=== PATIENT | male | born 1985 | race Caucasian/White ===

== ENCOUNTER → 2020-11-24 08:33 | Outpatient (CLI) | payer OTHER, SELFPAY ==
--- NOTE | ~2020-11-24 | MR_ITS ---
EXAMINATION: MR cervical spine wo con EXAM DATE: 11/24/2020 09:12 INDICATION: Right arm pain. Right-sided neck pain. TECHNIQUE: Multi-sequential, multiplanar MR images of the cervical spine were obtained without contra st. Axial T2, axial T2 MERGE sequence. Sagittal T1, T2, T2 fat saturation images also obtained. Th ere is no prior study for comparison. FINDINGS: There is moderate disc disease at C6-7, mild at the 4-5 and 5-6 levels. The spinal cord si gnal intensity and intrinsic morphology is normal. Cervicomedullary junction is normal in appearance. The vertebral bodies are aligned in the AP dimension. There are no suspicious marrow signal abnormal ities. Paraspinal soft tissue is unremarkable. Level by level evaluation: C2-C3: Disc does not extend beyond the endplate margin. Uncovertebral joint arthropathy: None. Facet joint arthropathy: Mild right. Neural foraminal stenosis: No stenosis. Central canal stenosis: No stenosis. C3-C4: Disc does not extend beyond the endplate margin. Uncovertebral joint arthropathy: Mild to moderate bilateral. Facet joint arthropathy: Mild bilateral. Neural foraminal stenosis: Mild to moderate bilateral. Central canal stenosis: No stenosis. C4-C5: There is a mild diffuse disc bulge. Uncovertebral joint arthropathy: Mild to moderate left, mild right. Facet joint arthropathy: Mild bilateral. Neural foraminal stenosis: No stenosis. Central canal stenosis: No stenosis. C5-C6: There is a mild diffuse disc bulge. Uncovertebral joint arthropathy: Mild to moderate bilateral. Facet joint arthropathy: None. Neural foraminal stenosis: No stenosis. Central canal stenosis: No stenosis. C6-7: Disc aspect by complex asymmetric to the right Uncovertebral joint arthropathy: Moderate right, mild left. Facet joint arthropathy: None. Neural foraminal stenosis: Moderate right. Central canal stenosis: No stenosis. C7-T1: There is far right protrusion causing severe right neural foraminal stenosis. Uncovertebral joint arthropathy: Mild to moderate. Facet joint arthropathy: Minimal. Neural foraminal stenosis: Severe right, mild left. Central canal stenosis: No stenosis. IMPRESSION: 1. C7-T1 far right protrusion causing severe right neural foraminal stenosis. Reviewed, dictated and finalized at location B.
== END ==
DX: M54.12 Radiculopathy, cervical region (principal); Z98.1 Arthrodesis status
CPT/HCPCS: 72141

== ENCOUNTER → 2021-09-13 15:28 | Outpatient (CLI) | payer OTHER, SELFPAY ==
--- NOTE | ~2021-09-13 | MR_ITS ---
EXAMINATION: MR cervical spine wo con DATE: 09/13/2021 16:10 INDICATION: Cervical disc disorder with radiculopathy. TECHNIQUE: Magnetic resonance imaging (MRI) of the cervical spine was performed without intravenous c ontrast. Sequences included sagittal T2-weighted FSE, sagittal T2-weighted FS FSE, sagittal T1-weight ed FSE, axial MERGE and axial T2-weighted FSE. COMPARISON: 11/24/2020 FINDINGS: Mild reversal of the normal cervical lordosis. Chronic mild anterior wedging of C5 and C6. Severe dis c height loss with degenerative endplate remodeling with mild T2 hyperintense fibrovascular degenerat kristan endplate changes at C6-C7. Mild disc height loss at C2-C3 through C5-C6 and at C7-T1. Bone marro w signal intensity is otherwise normal. Cord signal intensity is normal. Cervical soft tissues are un remarkable. The following disc levels are specifically discussed: C2-C3: The disc does not extend beyond the endplate margin. There is no uncovertebral joint osteoarth ritis. There is mild left and moderate right facet joint osteoarthritis. There is no neural foraminal stenosis. There is no central canal stenosis. C3-C4: The disc does not extend beyond the endplate margin. There is mild bilateral uncovertebral lourdes nt osteoarthritis. There is mild right and moderate left facet joint osteoarthritis. There is mild bi lateral neural foraminal stenosis. There is mild right and mild to moderate left central canal stenos is. C4-C5: Disc is mildly bulging. There is mild right and mild to moderate left uncovertebral joint oste oarthritis. There is mild left and mild to moderate right facet joint osteoarthritis. There is minima l bilateral neural foraminal stenosis. There is minimal central canal stenosis. C5-C6: Disc is mildly bulging. There is mild right and mild to moderate left uncovertebral joint oste oarthritis. There is mild bilateral facet joint osteoarthritis. There is no neural foraminal stenosis . There is mild central canal stenosis. C6-C7: Asymmetric to the right posterior disc osteophyte complex. There is moderate right and mild to moderate left uncovertebral joint osteoarthritis. There is minimal bilateral facet joint osteoarthri tis. There is moderate right neural foraminal stenosis. There is mild central canal stenosis. C7-T1: Annular fissure and right foraminal zone disc extrusion. There is mild left and moderate right uncovertebral joint osteoarthritis. There is mild right and minimal left facet joint osteoarthritis. There is moderate to severe right and mild left neural foraminal stenosis. There is no central canal stenosis. IMPRESSION: 1. No significant interval change in moderate to severe lower cervical predominant spondylosis most n otable for right foraminal zone disc extrusion at C7-T1 resulting in moderate to severe neural forami nal stenosis. Reviewed, dictated and finalized at location A. IMPRESSION: 1. No significant interval change in moderate to severe lower cervical predomin ant spondylosis most notable for right foraminal zone disc extrusion at C7-T1 r esulting in moderate to severe neural foraminal stenosis.
== END ==
PROVIDERS: Visit Provider Student in an Organized Health Care Education/Training Program
DX: M50.10 Cervical disc disorder with radiculopathy, unspecified cervical region (principal)
CPT/HCPCS: 72141

== ENCOUNTER 2023-11-09 06:56 | Outpatient (CLI) | payer OTHER, SELFPAY ==
--- NOTE | ~2023-11-09 | MR_ITS ---
MRI of the cervical spine Clinical History: Radiculopathy Technique: Axial T2-weighted and gradient images, and sagittal T1-weighted, T2-weighted, and STIR armand ges were acquired. Findings: There is no acute fracture or sublocation of the cervical spine. There is reversal normal c ervical lordosis. No suspicious bone marrow signal abnormality seen. At C2-C3, there is no disc bulge or herniation. No spinal canal stenosis or cord compression. There i s mild bilateral facet arthropathy and probable minimal bilateral neural foraminal narrowing. At C3-C4, there is minimal disc osteophyte complex. No tyler spinal canal stenosis or cord compressio n. There is probable minimal bilateral neural foraminal narrowing. At C4-C5, there is disc osteophyte complex, most prominent at the left paracentral to left foraminal region. There is minimal flattening of the left side of the ventral cord. There is probable preservat ion of bilateral neural foramina. At C5-C6, there is mild disc osteophyte complex. There is mild canal stenosis without cord compressio n. Bilateral neural foramina are preserved. At C6-C7, there is degenerative disc narrowing with disc osteophyte complex, most prominent at the ri ght paracentral region. There is mild canal stenosis without tyler cord compression. There is right n eural foraminal narrowing. Left neural foramen preserved. Impression: [id number] degenerative spondylosis overall, as detailed above. Reviewed, dictated and finalized at [facility]. Impression: [id number] degenerative spondylosis overall, as detailed above.
== END 2023-11-09 06:57 ==
LOC: MICIMG 06:57
PROVIDERS: Visit Provider Nurse Practitioner Family
DX: M54.12 Radiculopathy, cervical region (principal); M43.02 Spondylolysis, cervical region
CPT/HCPCS: 72141

== ENCOUNTER 2025-02-03 14:53 | Outpatient (CLI) | payer OTHER, SELFPAY ==
--- NOTE | ~2025-02-03 | MR_ITS ---
EXAMINATION: MR cervical spine wo con DATE: 02/03/2025 15:25 INDICATION: Neck pain with radiculopathy to the right side. TECHNIQUE: Magnetic resonance imaging (MRI) of the cervical spine was performed without intravenous contrast. Sequences included sagittal T2-weighted FSE, sagittal T2-weighted FS FSE, sagittal T1-weighted FSE, axial MERGE, and axial T2-weighted FSE. COMPARISON: MRI dated 11/09/2023. FINDINGS: No acute abnormalities of the cervical vertebrae. Strictures of the foramen magnum are normal in the sagittal view. At C2-3 level, no significant focal lesions. At C3-4 level, degenerative disc osteophyte complex on the right side causing moderately significant compromise of right lateral recesses. Moderate compromise of left neural foramen. Findings at this level are unchanged from prior study. At C4-5 level, generative disc disease with osteophyte complex is causing moderate compromise of left lateral recess and mild compromise of left neuroforamen. This finding is unchanged from prior study. At C5-6 level, degenerative disc disease focal bulging annulus in the midline mildly impinging on thecal sac similar to prior study. Right C6-7 level, disc osteophyte complexes causing moderate compromise of right lateral recess and right neural foramen similar to prior study. C7-T1 disc shows bulging annulus causing moderate bilateral foraminal narrowing similar to prior study, right worse than the left. Cervical spinal cord shows no focal lesions. IMPRESSION: 1. No acute bony lesions out cervical vertebrae. 2. Multilevel degenerative disc disease as described above in detail at each level. Overall findings are unchanged from prior study. 3. No focal lesions of cervical spinal cord. Reviewed, dictated and finalized at location T. [employer] IMPRESSION: 1. No acute bony lesions out cervical vertebrae. 2. Multilevel degenerative disc disease as described above in detail at each le herson. Overall findings are unchanged from prior study. 3. No focal lesions of cervical spinal cord.
== END 2025-02-03 14:54 | disposition home or self-care (01) ==
LOC: MICIMG 14:55
PROVIDERS: PCP Nurse Practitioner Family; Visit Provider Nurse Practitioner Family
DX: M54.12 Radiculopathy, cervical region (principal); M50.30 Other cervical disc degeneration, unspecified cervical region
CPT/HCPCS: 72141